=== PATIENT | female | born 1960 | race Two or more races ===

== ENCOUNTER → 2024-09-04 | Outpatient (CLI) | payer BC, SELFPAY ==
[2024-09-04 11:33] LABS: Basophils # (Auto) 0.1 Thou/mm3 (0.0-0.2); Basophils % (Auto) 1 % (0-2.5); Eosinophils % (Auto) 1 % (0-10); Hematocrit 40.5 % (36.0-46.0); Hemoglobin 13.9 g/dL (12.0-16.0); Immature Granulocytes % (Auto) 0 % (0-0); Immature Granulocytes Auto 0.01 Thou/mm3 (0.00-0.00); Lymphocytes # (Auto) 1.7 Thou/mm3 (1.0-4.8); Lymphocytes % (Auto) 31 % (10-50); Mean Corpuscular HGB Conc 34.3 g/dl (31.0-37.0); Mean Corpuscular Hemoglobin 32.6 pg (25.0-35.0); Mean Corpuscular Volume 95 fL (80-100); Monocytes # (Auto) 0.3 Thou/mm3 (0.0-0.8); Monocytes % (Auto) 5 % (0-12); Neutrophils # (Auto) 3.5 Thou/mm3 (1.8-7.7); Neutrophils % (Auto) 63 % (37-80); Nucleated Red Blood Cell % 0 /100 WBC (0); Platelet Count 235 Thou/mm3 (140-440); RDW Standard Deviation 48.1 fL (36.4-46.3); Red Blood Count 4.27 Miln/mm3 (4.00-5.20); White Blood Count 5.7 Thou/mm3 (3.6-11.0)
[2024-09-04 11:42] LABS: Glucose Estimated Average 103 mg/dL (80-131); Hemoglobin A1C 5.2 % Hgb (4.8-6.0)
[2024-09-04 11:46] LABS: T4 (Thyroxine) 6.8 mcg/dL (4.5-10.9)
[2024-09-04 11:48] LABS: Alanine Aminotransferase 15 U/L (10-49); Albumin, Serum 4.4 gm/dL (3.4-4.8); Albumin/Globulin Ratio 2.1 (1.2-2.2); Alkaline Phosphatase 75 U/L (46-116); Anion Gap 2 (7-16); Aspartate Amino Transferase 17 U/L (0-34); BUN/Creatinine Ratio 18 Ratio (12-20); Bilirubin,Total 0.6 mg/dL (0.3-1.2); Blood Urea Nitrogen 14 mg/dL (9-23); Calcium 9.7 mg/dL (8.3-10.6); Calcium (Corrected) 9.7 mg/dL (8.5-10.1); Carbon Dioxide 28.9 mMol/L (20.0-31.0); Cardiac Risk Estimate 2.7 RATIO (3.7-5.6); Chloride 108 mMol/L (98-107); Cholesterol 216 mg/dL (132-200); Creatinine (Component) 0.8 mg/dL (0.6-1.3); Globulin 2.1 gm/dL (2.3-3.5); Glucose 95 mg/dL (74-106); HDL Cholesterol 79 mg/dL (40-60); LDL Cholesterol,Calculated 124 mg/dL (0-130); Osmolality,Calculated 278 (275-295); Potassium 4.2 mMol/L (3.4-5.1); Sodium 139 mMol/L (136-145); Total Protein 6.5 gm/dL (5.7-8.2); Triglycerides 65 mg/dL (30-150); eGFR > 60 See Note
== END | disposition home or self-care (01) ==
LOC: COPL 10:21
PROVIDERS: PCP Family Medicine; Referring Provider Family Medicine; Visit Provider Family Medicine
DX: Z00.00 Encounter for general adult medical examination without abnormal findings (principal); R79.9 Abnormal finding of blood chemistry, unspecified
CPT/HCPCS: 36415; 80053; 80061; 83036; 84436; 84443; 85025

== ENCOUNTER → 2024-10-23 | Outpatient (CLI) | payer BC, SELFPAY ==
[2024-10-23 16:00] LABS: Collection Type, Urine Clean Catch
[2024-10-23 18:33] LABS: Bilirubin,Urine Negative (Negative); Blood,Urine Negative (Negative); Clarity,Urine Clear (Clear/Hazy); Color,Urine Yellow (Lt Yel-Yel); Glucose, Urine Negative (Negative); Ketones,Urine Negative (Negative); Leukocyte Esterase,Urine Positive (Negative); Nitrite,Urine Negative (Negative); Protein,Urine 1+ (Neg - Trace); RBC,Urine 4 /hpf (0-3); Specific Gravity,Urine 1.032 (1.001-1.035); Squamous Epithelial Cell,Urine 1 /hpf (0-5); WBC,Urine 7 /hpf (0-5)
== END | disposition home or self-care (01) ==
LOC: SLDO 15:46
PROVIDERS: PCP Physician Assistant; Referring Provider Physician Assistant; Visit Provider Physician Assistant
DX: N39.0 Urinary tract infection, site not specified (principal)
CPT/HCPCS: 81001; 87077; 87086; 87186

== ENCOUNTER 2024-10-24 14:16 | Inpatient (IN) | payer BC, SELFPAY ==
[2024-10-24] VITALS (7 sets, daily range): BP systolic 112–117; BP diastolic 47–70; PULSE 65–93; RESP 16–24; TEMP 36.5–37.2; O2SAT 95–99; BMI 23.8
--- NOTE | 2024-10-24 14:48 | XR_ITS ---
Examination: CT abdomen and pelvis without contrast. Coronal 3-D reconstructions. Sagittal 2-D reconstructions. Date and time of exam:October 24, 2024 at 1622 hrs. Comparison September 20, 2021 Indications: Lower abdominal pain pelvic pain beginning 3 days ago CTDI: vol (mGy): 6.65 DLP: (mGycm): 348 Technique: Axial images of the abdomen have been obtained, 3 mm slice thickness Intravenous contrast material has not been administered. Low dose protocols were performed. One or more of the following dose reduction techniques were used; automated exposure control, adjustment of the mA and/or KV according to patient size, use of iterative reconstruction technique. Findings: Pneumoperitoneum No focal liver lesions Cholelithiasis, gallbladder wall appears thickened Spleen is not enlarged No pancreatic mass 2 mm lower pole left renal calculus, no hydronephrosis or ureteral calculi Normal appendix No bowel obstruction Colonic diverticulosis, acute diverticulitis sigmoid colon with small air droplets outside the wall of the sigmoid colon, localized perforation, the diverticulitis likely accounting for the pneumoperitoneum No pelvic abscess Urinary bladder intact Retroverted uterus Impression: Acute sigmoid diverticulitis with localized perforation and pneumoperitoneum No peridiverticular abscess 2 mm lower pole left renal calculus Normal appendix
[2024-10-24 15:11] LABS: Collection Type, Urine Clean Catch
[2024-10-24 15:15] LABS: Bacteria,Urine Rare; Bilirubin,Urine Negative (Negative); Blood,Urine Negative (Negative); Clarity,Urine Clear (Clear/Hazy); Color,Urine Yellow (Lt Yel-Yel); Glucose, Urine Negative (Negative); Ketones,Urine 2+ (Negative); Leukocyte Esterase,Urine Negative (Negative); Nitrite,Urine Negative (Negative); Protein,Urine 1+ (Neg - Trace); RBC,Urine 5 /hpf (0-3); Specific Gravity,Urine 1.033 (1.001-1.035); Squamous Epithelial Cell,Urine < 1 /hpf (0-5); WBC,Urine 3 /hpf (0-5)
--- NOTE | 2024-10-24 15:28 | PD.EDRME ---
Rapid Medical Screening Exam RME Arrival date/time: 10/24/24 14:16 64-year-old female with no known medical history presents to the emergency room with a chief complaint of 7 out of 10 lower abdominal pain to the left lower quadrant. Patient states she was sent over by her primary care provider to rule out diverticulitis. I have greeted and performed a focused initial assessment of this patient. A comprehensive ED assessment and evaluation of the patient, analysis of all test results, and completion of the medical decision making process will be conducted by additional ED providers. Chief Complaint: Abdominal Pain Time Seen by Provider: 10/24/24 19:38 Vital signs: Vital Signs Temperature 99.0 F 10/24/24 14:33 Pulse Rate 93 10/24/24 14:33 Respiratory Rate 19 10/24/24 14:33 Blood Pressure 117/70 10/24/24 14:33 Pulse Oximetry (%) 95 10/24/24 14:33 Oxygen Delivery Method Room Air 10/24/24 14:33 Vital signs reviewed by provider: Yes
[2024-10-24] MEDS: KETOROLAC INJ 60 MG/2 ML VIAL 30 MG IM (15:40)
[2024-10-24 17:28] LABS: Basophils % (Auto) 0 % (0-2.5); Eosinophils % (Auto) 0 % (0-10); Hematocrit 35.4 % (36.0-46.0); Hemoglobin 12.1 g/dL (12.0-16.0); Immature Granulocytes % (Auto) 0 % (0-0); Immature Granulocytes Auto 0.06 Thou/mm3 (0.00-0.00); Lymphocytes # (Auto) 1.5 Thou/mm3 (1.0-4.8); Lymphocytes % (Auto) 11 % (10-50); Mean Corpuscular HGB Conc 34.2 g/dl (31.0-37.0); Mean Corpuscular Hemoglobin 31.7 pg (25.0-35.0); Mean Corpuscular Volume 93 fL (80-100); Monocytes # (Auto) 0.8 Thou/mm3 (0.0-0.8); Monocytes % (Auto) 6 % (0-12); Neutrophils # (Auto) 11.4 Thou/mm3 (1.8-7.7); Neutrophils % (Auto) 83 % (37-80); Nucleated Red Blood Cell % 0 /100 WBC (0); Platelet Count 187 Thou/mm3 (140-440); RDW Standard Deviation 45.5 fL (36.4-46.3); Red Blood Count 3.82 Miln/mm3 (4.00-5.20); White Blood Count 13.8 Thou/mm3 (3.6-11.0)
[2024-10-24 18:02] LABS: Alanine Aminotransferase < 7 U/L (10-49); Albumin, Serum 4.4 gm/dL (3.4-4.8); Albumin/Globulin Ratio 1.8 (1.2-2.2); Alkaline Phosphatase 72 U/L (46-116); Anion Gap 9 (7-16); Aspartate Amino Transferase 13 U/L (0-34); BUN/Creatinine Ratio 20 Ratio (12-20); Bilirubin,Total 0.7 mg/dL (0.3-1.2); Blood Urea Nitrogen 16 mg/dL (9-23); Calcium 9.5 mg/dL (8.3-10.6); Calcium (Corrected) 9.5 mg/dL (8.5-10.1); Carbon Dioxide 24.3 mMol/L (20.0-31.0); Chloride 106 mMol/L (98-107); Creatinine (Component) 0.8 mg/dL (0.6-1.3); Estimated Creatinine Clearance 57.1 mL/min (>60); Globulin 2.4 gm/dL (2.3-3.5); Glucose 86 mg/dL (74-106); Lipase 30 U/L (12-53); Osmolality,Calculated 277 (275-295); Potassium 3.9 mMol/L (3.4-5.1); Sodium 139 mMol/L (136-145); Total Protein 6.8 gm/dL (5.7-8.2); eGFR > 60 See Note
--- NOTE | 2024-10-24 19:48 | EDNOTE_ITS ---
ED Abdominal Pain RME/HPI General Chief Complaint: Abdominal Pain Stated complaint: ABDOMINAL PAIN Time seen by provider: 10/24/24 19:38 Arrival date/time: 10/24/24 14:16 Limitations: no limitations RME / HPI RME / HPI narrative: 10/24/24 14:16 64-year-old female with no known medical history presents to the emergency room with a chief complaint of 7 out of 10 lower abdominal pain to the left lower quadrant. Patient states she was sent over by her primary care provider to rule out diverticulitis. I have greeted and performed a focused initial assessment of this patient. A comprehensive ED assessment and evaluation of the patient, analysis of all test results, and completion of the medical decision making process will be conducted by additional ED providers. -------- Dr. Garrido's Main ED Evaluation: 64yo female presents to the ED for a chief complaint of LLQ pain x 3 days. No radiation or migration. She states her pain was constant and was [id number]. She states her pain persisted today, so she came in for evaluation. She reports associated nausea and a fever. She denies any vomiting, diarrhea, UTI symptoms or any other associated symptoms. She denies any previous abdominal surgeries. Denies being on any medications. Related Data Previous Rx's ?Medication ?Instructions ?Recorded ibuprofen 600 mg tablet 600 mg PO Q6H PRN pain #30 tabs 09/20/21 Allergies Allergy/AdvReac Type Severity Reaction Status Date / Time ciprofloxacin [From Cipro] Allergy Mild Rash Verified 10/24/24 14:20 Review of Systems Review of Systems Systems Reviewed: All systems reviewed, normal except as documented Past Medical History Past Medical History CARDIAC: Negative Cardiac Disorders or Congestive Heart Failure RESPIRATORY: Negative Chronic Obstructive Pulmonary Disease (COPD) or Asthma GASTROINTESTINAL: Positive Obesity GENITOURINARY: Negative Renal Disease ENDOCRINE: Negative Diabetes Mellitus Type 1 or Diabetes Mellitus Type 2 HEMATOLOGIC: Negative Sickle Cell Disease Social History SMOKING STATUS: Never smoker SUBSTANCE USE: unknown ED Exam General Limitations: Present no limitations General appearance: Present alert, in no apparent distress and other (talking in full sentences) Head Head exam: Present atraumatic Eye Eye exam: Present normal appearance, PERRL and EOMI ENT ENT exam: Present normal exam, normal oropharynx and mucous membranes moist Neck Neck exam: Present normal inspection, full ROM and trachea midline Chest Chest inspection: Present normal inspection and symmetric chest wall rise Respiratory Respiratory exam: Present normal lung sounds bilaterally; Absent accessory muscle use Cardiovascular Cardiovascular exam: Present regular rate, normal rhythm and normal heart sounds Abdominal Exam Abdominal exam: Present soft and normal bowel sounds Extremities Exam Extremities exam: Present normal inspection and full ROM Back Exam Back exam: Present normal inspection and full ROM Neurological Exam Neurological exam: Present alert, oriented X3 and CN II-XII intact Psychiatric Psychiatric exam: Present normal affect and normal mood Skin Skin exam: Present warm, dry, intact and normal color; Absent diaphoresis Course Quality Measures none Orders Category Date Time Status COVID-19 Screening Questionnaire NOW Care 10/24/24 20:40 Active Decision to Admit X1 Care 10/24/24 20:[address] abdomen pelvis wo con Stat Exams 10/24/24 14:48 Completed Blood Culture (Lab) Stat Lab 10/24/24 19:33 Received CBC Stat Lab 10/24/24 17:07 Completed CMP [Comprehensive Metabolic Panel] Stat Lab 10/24/24 17:07 Completed Lactic Acid [Lactate (Lactic Acid)] Stat Lab 10/24/24 19:33 Completed Lipase Stat Lab 10/24/24 17:07 Completed Procalcitonin Stat Lab 10/24/24 17:07 Completed UA [Urinalysis] Stat Lab 10/24/24 14:45 Completed Urine Culture Stat Lab 10/24/24 14:45 Received Ketorolac Inj [Toradol Inj] Med 10/24/24 14:49 Discontinued 30 mg IM X1 ONE Piper/Tazo Inj [Zosyn Inj] 3.375 gm Med 10/24/24 19:02 Discontinued Sodium Chloride 0.9% (P) [Ns 0.9% (P)] 50 ml IV X1 Vital Signs Vital signs: Vital Signs Temperature 99.0 F 10/24/24 14:33 Pulse Rate 93 10/24/24 14:33 Respiratory Rate 19 10/24/24 14:33 Blood Pressure 117/70 10/24/24 14:33 Pulse Oximetry (%) 95 10/24/24 14:33 Oxygen Delivery Method Room Air 10/24/24 14:33 Abdominal Pain MDM Patient data External records reviewed:: [facility] previous records (Per chart review, patient has no relevant previous ED visits.) Clinical information provided by:: patient Social determinants that could affect healthcare access:: none Patient has the following chronic illnesses:: none How is presenting disease/condition affected by chronic disease/condition?: no chronic disease Evaluation data The following diagnostics were reviewed and interpreted by me:: lab results and radiology exam(s) Lab and/or radiology exams considered but not ordered:: none Interpretation Summary: WBC count is elevated at 13.8, CMP is normal, Lipase is normal, Lactate is normal, Procalcitonin is normal, UA is unremarkable, according to my interpretation. ----- [facility] Report Signed Patient: ALICIA PHILLIP [facility]. Record#: [id number] Birthdate: 1960 Age/Sex: 64 / F Location: [facility] Attending Dr: Ordering Physician: Nicolas Roper Date of Service: 10/24/24 Procedure(s): CT abdomen pelvis wo con Accession Number(s): [id number] cc: Nicolas Roper; Miguel Muhammad MD; Arnold Villela MD~ Examination: CT abdomen and pelvis without contrast. Coronal 3-D reconstructions. Sagittal 2-D reconstructions. Date and time of exam:October 24, 2024 at 1622 hrs. Comparison September 20, 2021 Indications: Lower abdominal pain pelvic pain beginning 3 days ago CTDI: vol (mGy): 6.65 DLP: (mGycm): 348 Technique: Axial images of the abdomen have been obtained, 3 mm slice thickness Intravenous contrast material has not been administered. Low dose protocols were performed. One or more of the following dose reduction techniques were used; automated exposure control, adjustment of the mA and/or KV according to patient size, use of iterative reconstruction technique. Findings: Pneumoperitoneum No focal liver lesions Cholelithiasis, gallbladder wall appears thickened Spleen is not enlarged No pancreatic mass 2 mm lower pole left renal calculus, no hydronephrosis or ureteral calculi Normal appendix No bowel obstruction Colonic diverticulosis, acute diverticulitis sigmoid colon with small air droplets outside the wall of the sigmoid colon, localized perforation, the diverticulitis likely accounting for the pneumoperitoneum No pelvic abscess Urinary bladder intact Retroverted uterus Impression: Acute sigmoid diverticulitis with localized perforation and pneumoperitoneum No peridiverticular abscess 2 mm lower pole left renal calculus Normal appendix Dictated By: Miguel Muhammad MD Signed By: <Electronically signed by Miguel Muhammad MD in OV> 10/24/24 9552 Medications / Prescriptions Medications or Prescriptions considered but not ordered:: none Medication administrations:: Medication Administration History Discontinued Medications Piperacillin Sod/Tazobactam (Sod 3.375 gm/ Sodium Chloride) 50 mls @ 100 mls/hr IV X1 ONE Stop: 10/24/24 19:31 Ketorolac Tromethamine (Ketorolac Inj 60 Mg/2 Ml Vial) 30 mg IM X1 ONE Stop: 10/24/24 14:50 Last Admin: 10/24/24 15:40 Dose: 30 mg Documented By: OA see above Consultations Consultation(s) initiated? (list below): Yes Consultation #1 (Physician, Specialty, Details): Discussed case with [Dr. Murry] from [general surgery] regarding [consultation]. Discussed patients ED course, exam findings, labs, and radiology results. States if the patient has rebound or septic appearing, she will take the patient to the OR, otherwise, the patient can be admitted to the medicine team. Time: 20:48 Consultation #2 (Physician, Specialty, Details): Discussed case with [the resident physician, attending Dr. Clancy] from Hospitalist service regarding admission. Discussed patients ED course, exam findings, labs, and radiology results. The Hospitalist [agrees] to accept the patient for admission. Diagnosis Differential diagnosis abdominal pain: diverticulitis, pancreatitis and other (rupture of peritoneum) Most likely diagnosis given after review of the tests above:: see below Admission Indicated Admission indicated?: indicated Admission Request Was there a request for admission?: Yes Admission Attestation Admission request attestation: Discussed case with [] from Hospitalist service regarding admission. Discussed patients ED course, exam findings, labs, and radiology results. The Hospitalist [agrees,declines] to accept the patient for admission. Disposition Plan Disposition Plan: Admit Discharge Plan Prescriptions/Referrals Prescriptions/Med Rec: No Action ibuprofen 600 mg tablet 600 mg PO Q6H PRN (Reason: pain) Qty: 30 0RF Referrals: Arnold Villela MD [Primary Care Provider] - In 1 week Patient/Caregiver Discharge Instructions Print Language: Tajik
[2024-10-24 19:49] LABS: Lactate (Lactic Acid) 0.6 mMol/L (0.4-2.0)
[2024-10-24 20:18] LABS: Procalcitonin 0.21 ng/ml (0.0-0.49)
[2024-10-24] MEDS: PIPER/TAZO INJ 3.375 GM in SODIUM CHLORIDE 0.9% (P) 50 ML IV (22:19)
--- NOTE | 2024-10-24 22:43 | PD.RESHP ---
Documentation for date of: 10/24/24 HPI History of Present Illness Chief complaint: Abdominal pain for 2 days associated with fever and nausea History of present illness: HPI:A 64-year-old female patient with no known medical condition presented to the ED due to left lower quadrant abdominal pain that started 2 days before admission. Patient reported that the pain started as 9 out of 10 in severity in her lower abdominal area more to the left associated with nausea. Patient went to sleep at the night thinking that the pain skin resolved however the next day she developed fever which made her concerned and she became nauseous however she did not vomit. Patient went to her primary care physician in which she was prescribed antibiotics orally however her pain continued to worsen and started to develop fever for that reason he recommended the patient to go to the ED. Patient denied any vomiting denied any diarrhea or constipation he she reported that she has some episodes of constipation almost once a month however it is relieved by laxatives. Of note patient reported that she has recurrent UTIs and she mentioned that she usually have 3-4 episodes of UTI every year and she mentioned that the urine become smelling and dark brown. Home medications:None ED course: At the ED patient was found to have heart rate of 93, blood pressure of 117/70, temperature of 99.0, O2 of 95 on room air. CBC was positive for WBC of 13.8, hemoglobin of 12.1, platelet 187, biochemistry was nonsignificant lactic acid within normal limits, lipase of 30, Pro-Masood was normal. CT scan of the abdomen and pelvis showed sigmoid diverticulitis with localized pneumoperitoneum, microperforations. General surgeon Dr. Osuna was consulted she recommended to admit the patient for conservative management with IV fluids and IV antibiotics. If the patient became septic or developed signs of peritonitis she she will possibly do surgical intervention. PMH: None PSX: Ankle surgery PFX: None Social hx: Alcohol: Socially Tobacco: Denied Illicit drugs: Mushroom coffee Allergies: Ciprofloxacin Review of Systems Review of Systems Systems Reviewed: All systems reviewed, normal except as documented Exam Vital Signs Temp Pulse Resp BP Pulse Ox O2 Del Method 98.0 F 65 16 112/66 97 Room Air 10/24/24 22:27 10/24/24 21:46 10/24/24 22:20 10/24/24 22:20 10/24/24 22:20 10/24/24 22:20 Narrative Exam GEN: AOx3, able to speak full sentences HEENT: NC/AC, PERRLA, oral mucosa moist, neck supple CVS: RRR, S1-S2 present, no murmurs appreciated RESP: CTAB GI: No obvious scars, no abdominal distention, lower abdominal tenderness mostly on the left lower quadrant, also at the epigastric region. MSK: able to move all 4 limbs, no lower extremity edema SKIN: warm and dry [employer]: CN II-XII and Sensation grossly intact. Results: Labs 10/24/24 17:07 10/24/24 17:07 Labs: Short CBC 10/24/24 Range/Units 17:07 WBC 13.8 H (3.6-11.0) Thou/mm3 Hgb 12.1 (12.0-16.0) g/dL Hct 35.4 L (36.0-46.0) % Plt Count 187 (140-440) Thou/mm3 BMP 10/24/24 17:07 Sodium 139 Potassium 3.9 Chloride 106 Carbon Dioxide 24.3 BUN 16 Creatinine 0.8 Glucose 86 Calcium 9.5 Liver Function 10/24/24 Range/Units 17:07 Total Bilirubin 0.7 (0.3-1.2) mg/dL AST 13 (0-34) U/L ALT < 7 L (10-49) U/L Alkaline Phosphatase 72 (46-116) U/L Albumin 4.4 (3.4-4.8) gm/dL Urine 10/24/24 Range/Units 14:45 Urine Color Yellow (Lt Yel-Yel) Urine Clarity Clear (Clear/Hazy) Urine pH 6.0 (5.0-7.0) Ur Specific [place] 1.033 (1.001-1.035) Urine Protein 1+ A (Neg - Trace) Urine Glucose (UA) Negative (Negative) Quality Measures Quality Measures none Advance care planning discussed with:: patient Medications Home Medications and Allergies Allergies Allergy/AdvReac Type Severity Reaction Status Date / Time ciprofloxacin [From Cipro] Allergy Mild Rash Verified 10/24/24 14:20 Visit Medications Discontinued Medications Piperacillin Sod/Tazobactam (Sod 3.375 gm/ Sodium Chloride) 50 mls @ 100 mls/hr IV X1 ONE Stop: 10/24/24 19:31 Last Admin: 10/24/24 22:19 Dose: 100 mls/hr Ketorolac Tromethamine (Ketorolac Inj 60 Mg/2 Ml Vial) 30 mg IM X1 ONE Stop: 10/24/24 14:50 Last Admin: 10/24/24 15:40 Dose: 30 mg Assessment & Plan Plan Summary:A 64-year-old female patient and known case of any medical condition presented to the ED due to left lower quadrant abdominal pain that started 2 days before admission. Patient reported that the pain started as 9 out of 10 in severity in her lower abdominal area more to the left associated with nausea. CT scan showed diverticulitis. Assessment and plan #Sigmoid diverticulitis #Localized sigmoid perforation CBC was positive for WBC of 13.8, hemoglobin of 12.1, platelet 187, biochemistry was nonsignificant lactic acid within normal limits, lipase of 30, Pro-Masood was normal. CT scan of the abdomen and pelvis showed sigmoid diverticulitis with localized pneumoperitoneum, microperforations. General surgeon Dr. Osuna was consulted she recommended to admit the patient for conservative management with IV fluids and IV antibiotics. Plan ? Admit patient to MedSurg ? Keep the patient n.p.o. ? IV fluid 100 mL/h ? General Surgery consultation Dr. Osuna was ordered, recommendation appreciated ? Patient hemodynamically stable at this time but appears that perforation is contained, no peritoneal signs noted. No immediate indication for surgery at this time ? Start the patient on Zosyn 0 /3 ? Pain management as per protocol ? Coagulation panel for possible surgical intervention ? Blood culture was ordered by the ED physician, follow-up on the results ? Tylenol as needed for fever Hospital Maintenance: FEN: N.p.o. DVT ppx: SCD GI ppx: Protonix IV lines: PIV Vanessa: None Code status: Full code Dispo: MedSurg - Patient's plan and care discussed with my attending, Dr. Aston Mckeon MD Internal Medicine PGY-2 Attending Provider Attestation/Addendum I have examined the patient, reviewed labs and imaging findings, discussed the case with the resident(s), and reviewed entered orders. I agree with the plan of care as outlined in this note, with these additional summaries/recommendations: 64-year-old female with no known past medical history presents the ED with chief complaint of left lower quadrant pain that began approximately 2 days prior to admission with fevers, chills, severe manage 10 pain which prompted her to come to the ER. Labs showed white blood cell count of 13.[address] scan on admission revealed sigmoid diverticulitis with perforation and localized pneumoperitoneum (no abscess). Patient will be admitted for acute complicated sigmoid diverticulitis and to be initiated on Zosyn. Placed n.p.o. and general surgery consult placed, however no immediate indications for surgical intervention at this time. Patient stable with no peritoneal signs at this time. Angel Clancy MD
[2024-10-24] MEDS: MORPHINE SULF INJ 10 MG/ML VIAL 2 MG IVP (23:54)
[2024-10-24] MEDS: RINGERS LACTATED 1000 ML 1,000 ML 100 ML IV (23:55)
[2024-10-24] MEDS: ONDANSETRON INJ 2 MG/ML INJ 2 ML 4 MG IV (23:55)
[2024-10-25] VITALS (14 sets, daily range): BP systolic 83–119; BP diastolic 43–60; PULSE 53–72; RESP 13–97; TEMP 36.1–36.3; O2SAT 93–97; BMI 23.6
--- NOTE | 2024-10-25 03:32 | PC.NURSE ---
report given to Remberto SKINNER. Pt taken to rm via wc by ngozi.
[2024-10-25] MEDS: PIPER/TAZO 3.375 GM 3.375 GM/50 ML BAG IV ×3 (05:26→21:15)
[2024-10-25 05:36] LABS: Basophils % (Auto) 0 % (0-2.5); Eosinophils # (Auto) 0.1 Thou/mm3 (0.0-0.5); Eosinophils % (Auto) 2 % (0-10); Hematocrit 29.9 % (36.0-46.0); Hemoglobin 9.9 g/dL (12.0-16.0); Immature Granulocytes % (Auto) 0 % (0-0); Immature Granulocytes Auto 0.02 Thou/mm3 (0.00-0.00); Lymphocytes # (Auto) 1.4 Thou/mm3 (1.0-4.8); Lymphocytes % (Auto) 18 % (10-50); Mean Corpuscular HGB Conc 33.1 g/dl (31.0-37.0); Mean Corpuscular Hemoglobin 31.3 pg (25.0-35.0); Mean Corpuscular Volume 95 fL (80-100); Monocytes # (Auto) 0.7 Thou/mm3 (0.0-0.8); Monocytes % (Auto) 8 % (0-12); Neutrophils # (Auto) 5.5 Thou/mm3 (1.8-7.7); Neutrophils % (Auto) 72 % (37-80); Nucleated Red Blood Cell % 0 /100 WBC (0); Platelet Count 170 Thou/mm3 (140-440); RDW Standard Deviation 46.4 fL (36.4-46.3); Red Blood Count 3.16 Miln/mm3 (4.00-5.20); White Blood Count 7.7 Thou/mm3 (3.6-11.0)
[2024-10-25 06:32] LABS: Alanine Aminotransferase 8 U/L (10-49); Albumin, Serum 3.7 gm/dL (3.4-4.8); Albumin/Globulin Ratio 1.9 (1.2-2.2); Alkaline Phosphatase 57 U/L (46-116); Anion Gap 10 (7-16); Aspartate Amino Transferase 13 U/L (0-34); BUN/Creatinine Ratio 20 Ratio (12-20); Bilirubin,Total 0.7 mg/dL (0.3-1.2); Blood Urea Nitrogen 16 mg/dL (9-23); Calcium 8.8 mg/dL (8.3-10.6); Carbon Dioxide 23.4 mMol/L (20.0-31.0); Chloride 106 mMol/L (98-107); Creatinine (Component) 0.8 mg/dL (0.6-1.3); Estimated Creatinine Clearance 55.4 mL/min (>60); Glucose 73 mg/dL (74-106); Osmolality,Calculated 277 (275-295); Phosphorous 3.2 mg/dL (2.4-5.1); Potassium 3.8 mMol/L (3.4-5.1); Sodium 139 mMol/L (136-145); Thyroid Stimulating Hormone 2.32 uIU/mL (0.55-4.78); Total Protein 5.7 gm/dL (5.7-8.2); eGFR > 60 See Note
[2024-10-25] MEDS: PANTOPRAZOLE 40 MG TABLET PO ×2 (08:03→21:15)
--- NOTE | 2024-10-25 08:54 | ESPR_ITS ---
<Statement entered by Adair Archer MD - 10/25/24 16:51> Patient was seen and examined at the bedside. Patient reported that she had abdominal discomfort for the past few days. She denied any hematochezia. Patient reported to have feeling of nausea and vomiting. Patient is admitted for sigmoid diverticulitis with pneumoperitoneum. Surgery was consulted and per recommendations we are managing medically and no surgical intervention at this point. Currently we are continue with Zosyn and will follow-up on blood cultures and urine cultures. Will follow-up on ultrasound liver mass CT abdomen showed cholelithiasis pattern. Labs showed stable white count and hemoglobin. Kidney functions were stable. Will likely continue with current management and follow-up on morning labs. All labs and orders were reviewed. I saw and examined the patient, and I agree with current management stated by Dr Kelvin MD ,PGY1. Plan of care was discussed with the attending physician and resident physician. Disclaimer: Despite multiple revisions, due to the dictation software being used, the document bellow may not be free of grammatical errors including phonetic/typographic errors. However, this does not deter from our commitment to providing health care in the patient's best interest in mind. Dr. Gianni MD, PGY 2 Documentation for date of: 10/25/24 Subjective Subjective Interval history: Patient is a 64-year-old female with a past medical history of cold sores but other than that unremarkable who was admitted on 10/24/2024 for acute diverticulitis with a small perforation/pneumoperitoneum. No overnight events reported. Patient examined at bedside. Patient reports that her abdominal pain has improved some and is down to 6/10 and was initially a 8/10 on pain scale. She does report that she had one episode of diarrhea on new years but none since then. She denied hematochezia, vomiting, chest pain, dyspnea, and dizziness. Exam Vital Signs Temp Pulse Resp BP Pulse Ox O2 Del Method 97 F 67 19 119/60 94 L Room Air 10/25/24 04:00 10/25/24 07:05 10/25/24 07:05 10/25/24 04:00 10/25/24 04:00 10/25/24 04:00 Narrative Exam Constitutional: Awake and alert. Resting comfortably in bed. CHEST: Symmetrical, atraumatic, and with equal expansion , Nontender on palpation no deformity and no crepitus. CARDIOVASCULAR: Heart regular rhythm no murmur or gallop rub or extra beats. LUNGS: Clear to auscultation bilaterally with symmetrical chest rise.? No laboring tachypnea or wheezing.? No intercostal subcostal retraction.? No rales and no rhonchi. ABDOMEN: Patient has tenderness to palpation throughout abdomen. Pain seems more severe in left lower quadrant but also right upper quadrant EXTREMITIES: Nontender.? No edema.? No cyanosis.? Patient is able to move all 4 extremities well, with full ROM and good CSM. SKIN: Warm and dry, no jaundice or rashes noted. Objective Labs 10/26/24 05:56 10/26/24 05:56 Labs: Laboratory Results - last 24 hr 10/24/24 10/24/24 10/24/24 14:45 17:07 19:33 WBC 13.8 H RBC 3.82 L Hgb 12.1 Hct 35.4 L MCV 93 MCH 31.7 MCHC 34.2 RDW Std Deviation 45.5 Plt Count 187 Neut % (Auto) 83 H Lymph % (Auto) 11 Flagler % (Auto) 6 Eos % (Auto) 0 Baso % (Auto) 0 Neut # (Auto) 11.4 H Lymph # (Auto) 1.5 Flagler # (Auto) 0.8 Eos # (Auto) 0.0 Baso # (Auto) 0.0 Immature Gran # (Auto) 0.06 H Absolute Nucleated RBC 0.00 Immature Gran % 0 Nucleated RBC % 0 Sodium 139 Potassium 3.9 Chloride 106 Carbon Dioxide 24.3 Anion Gap 9 BUN 16 Creatinine 0.8 Estim Creat Clear Calc 57.1 L eGFR > 60 BUN/Creatinine Ratio 20 Glucose 86 Calculated Osmolality 277 Lactic Acid 0.6 Calcium 9.5 Corrected Calcium 9.5 Phosphorus Magnesium Total Bilirubin 0.7 AST 13 ALT < 7 L Alkaline Phosphatase 72 Total Protein 6.8 Albumin 4.4 Globulin 2.4 Albumin/Globulin Ratio 1.8 Lipase 30 Procalcitonin 0.21 TSH Ur Collection Type Clean Catch Urine Color Yellow Urine Clarity Clear Urine pH 6.0 Ur Specific Ollie 1.033 Urine Protein 1+ A Urine Glucose (UA) Negative Urine Ketones 2+ A Urine Blood Negative Urine Nitrite Negative Urine Bilirubin Negative Urine Urobilinogen (Auto) 4.0 Ur Leukocyte Esterase Negative Urine RBC 5 H Urine WBC 3 Ur Squamous Epith Cells < 1 Urine Bacteria Rare 10/25/24 05:16 WBC 7.7 D RBC 3.16 L Hgb 9.9 L D Hct 29.9 L MCV 95 MCH 31.3 MCHC 33.1 RDW Std Deviation 46.4 H Plt Count 170 Neut % (Auto) 72 Lymph % (Auto) 18 Flagler % (Auto) 8 Eos % (Auto) 2 Baso % (Auto) 0 Neut # (Auto) 5.5 Lymph # (Auto) 1.4 Flagler # (Auto) 0.7 Eos # (Auto) 0.1 Baso # (Auto) 0.0 Immature Gran # (Auto) 0.02 H Absolute Nucleated RBC 0.00 Immature Gran % 0 Nucleated RBC % 0 Sodium 139 Potassium 3.8 Chloride 106 Carbon Dioxide 23.4 Anion Gap 10 BUN 16 Creatinine 0.8 Estim Creat Clear Calc 55.4 L eGFR > 60 BUN/Creatinine Ratio 20 Glucose 73 L Calculated Osmolality 277 Lactic Acid Calcium 8.8 Corrected Calcium 9.0 Phosphorus 3.2 Magnesium 2.0 Total Bilirubin 0.7 AST 13 ALT 8 L Alkaline Phosphatase 57 D Total Protein 5.7 Albumin 3.7 D Globulin 2.0 L Albumin/Globulin Ratio 1.9 Lipase Procalcitonin TSH 2.32 Ur Collection Type Urine Color Urine Clarity Urine pH Ur Specific Ollie Urine Protein Urine Glucose (UA) Urine Ketones Urine Blood Urine Nitrite Urine Bilirubin Urine Urobilinogen (Auto) Ur Leukocyte Esterase Urine RBC Urine WBC Ur Squamous Epith Cells Urine Bacteria Quality Measures Quality Measures VTE prophylaxis Advance care planning discussed with:: patient Assessment & Plan Assessment Current Active Medications: Generic Name Dose Route Start Last Admin Trade Name Hilda PRN Reason Stop Dose Admin Acetaminophen 650 mg 10/24/24 22:50 Acetaminophen 325 Mg Tablet PO 11/23/24 22:49 Q6H PRN Fever >101.5 Acetaminophen 650 mg 10/24/24 22:50 Acetaminophen 325 Mg Tablet PO 11/23/24 22:49 Q6H PRN PAIN SCALE 1-3 (mild Lactated Ringer's 1,000 mls @ 100 mls/hr 10/24/24 23:00 10/24/24 23:55 Lactated Ringers IV 10/25/24 08:59 100 mls/hr .Q10H CARMELO Administration Piperacillin/Tazobactam/Dextrose 3.375 gm in 50 mls @ 12.5 mls/hr 10/25/24 06:00 10/25/24 05:26 Zosyn IV 11/01/24 05:59 12.5 mls/hr Q8HR CARMELO Administration Morphine Sulfate 2 mg 10/24/24 22:50 10/24/24 23:54 Morphine Sulf Inj 10 Mg/Ml Vial IVP 10/29/24 22:49 2 mg Q3H PRN Administration PAIN SCALE 7-10 (Severe Ondansetron HCl 4 mg 10/24/24 22:50 10/24/24 23:55 Ondansetron Inj 2 Mg/Ml Inj 2 Ml IV 11/23/24 22:49 4 mg Q6H PRN Administration NAUSEA OR VOMITING Protocol Oxycodone/Acetaminophen 1 tab 10/24/24 22:50 Oxycodone/Apap 5/325 Tablet PO 10/29/24 22:49 Q6H PRN PAIN SCALE 4-6 (Moderate Pantoprazole Sodium 40 mg 10/25/24 09:00 Pantoprazole 40 Mg Tablet PO 11/24/24 08:59 BID CARMELO Plan 64 year old female with no known past medical history who presented with worsening abdominal pain since 10/22/2024 with associated nausea found to have sigmoid diverticulitis so was admitted for further management. #Sigmoid diverticulitis #Localized sigmoid perforation #Right upper quadrant tenderness CBC was positive for WBC of 13.8, hemoglobin of 12.1, platelet 187, biochemistry was nonsignificant lactic acid within normal limits, lipase of 30, Pro-Masood was normal. General surgeon Dr. Osuna was consulted she recommended to admit the patient for conservative management with IV fluids and IV antibiotics. On exam patient has right upper quadrant tenderness. Possible that this is related to her diverticulitis. However, can not rule out gall bladder disease Diagnostics: -CT scan of the abdomen and pelvis showed sigmoid diverticulitis with localized pneumoperitoneum, microperforations. -Blood Culture 10/23 [facility]-pending second bottle (24 hours) Plan ? Admit patient to [facility] ?clear liquid diet ? IV fluid 100 mL/h -Bolus 500 ml given on 10/25/2024 ?Continue on Zosyn (10/24--) -Vancomycin 10/25/2023 ? Pain management as per protocol ? Tylenol as needed for fever - Per surgery recommendations, since patient hemodynamically stable at this time and no peritoneal signs noted there is no immediate indication for surgery at this time. -General Surgery Consulted appreciate recommendations. #Hypotension #Acute Blood Loss Patient has soft blood pressure thought out hospital course with slight decrease in Hgb from AM, thus acute blood loss can not be ruled out. Drop in hgb likely lab error given improved Hgb shortly after with repeat test. Continue to monitor. Plan -Type and Screen obtained -Consider Hgb and Hct at midnight -bolus 500 ml given today -Monitor MAP>65 -Consider additional bolus and if blood pressure continues to be soft add Midodrine. #Hypoglycemia: Patients labs revealed that glucose was low at 73. Likely from fact patient was NPO. Patient now started on clear liquid diet Plan: - Start D50 25 ml q15 as needed if blood sugar 50-70 - Advance to clear liquid diet - Will reassess glucose # Normocytic anemia: # Iron deficiency anemia On patients labs, Iron of 29, TIBC 200, RDW of 46.4, and hemoglobin of 11.2. Given both Iron and TIBC is low in setting of increased RDW, suspect Iron deficiency anemia. Patients hemoglobin increased from 9.9 to 11.2 so possible that anemia is from delusional effect. Plan: - Low iron stores -monitor BP and hear rate -no iron tablets at this time -Type and Screen in. - Ordered Guaiac testing to rule out GI bleed #Cholelithiasis Incidental finding of cholelithiasis with right upper quadrant pain as noted on CT abdomen. Plan - Complete gall bladder ultrasound given RUQ tenderness Health maintenance Diet: Clear liquid diet until tomorrow GI prophylaxis: Protonix 40 mg p.o. daily DVT prophylaxis:SCDs CODE STATUS: Full code Disposition: Patient is admitted for further workup and management of sigmoid divirticulitis -- Patient was seen and discussed with attending physician, Dr. Hanson and resident physician, Dr. Warren, PGY1 and Dr. Archer, PGY 2 [facility] Medical student - The patient's plan was discussed with attending Dr. Hanson and Dr. Gianni Warren MD PGY1 Internal Medicine Attending Provider Attestation/Addendum I attest that I was physically present for the evaluation, physical examination, lab and imaging review of the patient with the residents. I discussed the case with the residents and agree with the findings and plans of care as documented above. Patient was admitted overnight for management of Acute diverticulitis with small localized perforation and pneumoperitoneum. At bedside today, patient states she is feeling better. Denies any nausea/vomiting, abdominal pain has decreased significantly. Had mild tenderness on palpation. Has been able to tolerate clear liquids. General surgery on board, given patient's improvement, recommended medical management with outpatient elective surgery later on, appreciate recs. We will continue IV antibiotics, analgesics, mild IV hydration. We will slowly advance diet as tolerated. Caitlyn Hanson MD
[2024-10-25 09:12] LABS: Hematocrit 33.8 % (36.0-46.0); Hemoglobin 11.2 g/dL (12.0-16.0)
--- NOTE | 2024-10-25 09:34 | PC.NURSE ---
RN spoke with Dr. Murry. Family and patient are asking about surgical plan. Dr. Murry stated that there is no plan for surgery at this time, but she will come bedside to speak to the family today. The patient is stable, vital signs are stable this time, afebrile. Family has questions about the plan moving forward. RN instructed family to ask Dr. Murry when she comes to speak to them. Dr. Murry stated ok for pt to be started on clear liquid diet. RN will continue to monitor
[2024-10-25 10:20] LABS: Iron 29 mcg/dL (50-170); Percent Iron Saturation 14 % (20-55); Total Iron Binding Capacity 200 mcg/dL (250-425); Unsaturated Iron Binding 171 (225-295)
--- NOTE | 2024-10-25 12:40 | PD.SURCONS ---
HPI Consult details History of present illness: 64F presenting with abdominal pain, nausea and fever. Pt reports symptoms began three days ago with pain in the LLQ, associated with nausea but no vomiting with intermittent fever. Pt was prescribed PO abx by her PCP but given worsening symptoms sought care in ER. CT showed sigmoid diverticulitis with associated pneumoperitoneum; pt has remained hemodynamically normal with no fever, improved pain and normalized WBC Pt states she had a colonoscopy many years ago which was normal, and denies any dysuria, pneumaturia or fecaluria PMH: Denies PSHx: Ankle surgery Meds: None Allergies: Cipro Social hx: Nonsmoker Family hx: No known malignancies Review of Systems Review of Systems ROS Unobtainable: All systems reviewed & no additional complaints except as documented Meds Home Medications and Allergies Allergies Allergy/AdvReac Type Severity Reaction Status Date / Time ciprofloxacin [From Cipro] Allergy Mild Rash Verified 10/24/24 14:20 Exam Vital Signs Temp Pulse Resp BP Pulse Ox O2 Del Method 97.0 F 66 18 104/51 L 94 L Room Air 10/25/24 08:00 10/25/24 08:00 10/25/24 08:00 10/25/24 08:00 10/25/24 08:00 10/25/24 08:00 Constitutional Constitutional: no acute distress Routine Respiratory Exam Respiratory: Present no resp distress Routine Abdominal Exam Abdominal: Present soft; Absent tenderness or distended Results Results: Laboratory Laboratory results: results reviewed Results: Imaging CT scan - abdomen: report reviewed and image reviewed Assessment & Plan Plan 64F otherwise healthy presenting with acute sigmoid diverticulitis with radiographic findings of pneumoperitoneum, who is clinically very well with little to no pain, no tenderness, normalized WBC and remaining afebrile. I explained to pt in person and with her family on the phone that given her overall clinical picture I do not recommend emergent surgery, as she is not having signs of sepsis or peritonitis. I recommend continuing IV antibiotics and gradually advancing diet as tolerated; when her pain is well controlled with PO meds, she is tolerating regular diet with regular bowel function and if WBC remains normal she can be discharged to complete a PO antibiotic regimen. After 12 weeks she should undergo diagnostic colonoscopy and can consider elective sigmoidectomy after that. All questions were answered and pt and family expressed understanding CLD, advance as tolerated (pt prefers to stay on CLD for now) Continue zosyn Trend WBC, vitals
[2024-10-25] MEDS: SODIUM CHLORIDE 0.9% 1000 ML 1,000 ML 70 ML IV (13:22)
--- NOTE | 2024-10-25 13:55 | XR_ITS ---
Examination: Abdomen sonogram, Limited Date and time of exam: October 25, 2023 at 1602 hrs. Indications: Upper abdominal pain today Technique: Real-time dunbar scale transabdominal sonographic images of the upper abdomen obtained. Findings: 23 mm stone in the gallbladder neck with 22 mm second gallstone Gallbladder wall is thickened 0.7 cm with edema Common bile duct point 4 cm Pancreatic head 2.1 cm Liver 15.9 cm smooth contour no focal liver lesions Normal hepatopedal portal venous flow Patent IVC Impression: Acute calculus cholecystitis
[2024-10-25] MEDS: SODIUM CHLORIDE 0.9% 500 ML 500 ML 999 ML IV (15:45)
[2024-10-25] MEDS: SODIUM CHLORIDE 0.9% 1000 ML 1,000 ML 80 ML IV (15:45)
--- NOTE | 2024-10-25 17:32 | PC.NURSE ---
MD made aware that blood culture came back gram positive cocci. No orders given. MD to place orders if needed
[2024-10-25] MEDS: VANCOMYCIN/WATER 1250 MG IVPB 250 ML 120 MG IV (18:25)
[2024-10-26] VITALS (7 sets, daily range): BP systolic 98–110; BP diastolic 53–63; PULSE 54–96; RESP 16–98; TEMP 36.2–36.8; O2SAT 91–98
[2024-10-26 00:20] LABS: INR 1.1 (0.9-1.3); Partial Thromboplastin Time 32.2 Seconds (22.0-36.0); Prothrombin Time 11.5 Seconds (9.0-12.2)
[2024-10-26] MEDS: PIPER/TAZO 3.375 GM 3.375 GM/50 ML BAG IV ×3 (05:14→21:01)
[2024-10-26] MEDS: SODIUM CHLORIDE 0.9% 1000 ML 1,000 ML 80 ML IV (05:17)
[2024-10-26 06:20] LABS: Basophils % (Auto) 1 % (0-2.5); Eosinophils # (Auto) 0.2 Thou/mm3 (0.0-0.5); Eosinophils % (Auto) 3 % (0-10); Hematocrit 32.4 % (36.0-46.0); Hemoglobin 10.6 g/dL (12.0-16.0); Immature Granulocytes % (Auto) 0 % (0-0); Immature Granulocytes Auto 0.02 Thou/mm3 (0.00-0.00); Lymphocytes # (Auto) 1.5 Thou/mm3 (1.0-4.8); Lymphocytes % (Auto) 26 % (10-50); Mean Corpuscular HGB Conc 32.7 g/dl (31.0-37.0); Mean Corpuscular Hemoglobin 31.4 pg (25.0-35.0); Mean Corpuscular Volume 96 fL (80-100); Monocytes # (Auto) 0.5 Thou/mm3 (0.0-0.8); Monocytes % (Auto) 8 % (0-12); Neutrophils # (Auto) 3.6 Thou/mm3 (1.8-7.7); Neutrophils % (Auto) 62 % (37-80); Nucleated Red Blood Cell % 0 /100 WBC (0); Platelet Count 206 Thou/mm3 (140-440); RDW Standard Deviation 46.6 fL (36.4-46.3); Red Blood Count 3.38 Miln/mm3 (4.00-5.20); White Blood Count 5.8 Thou/mm3 (3.6-11.0)
[2024-10-26 07:00] LABS: Alanine Aminotransferase 9 U/L (10-49); Albumin, Serum 3.7 gm/dL (3.4-4.8); Albumin/Globulin Ratio 1.8 (1.2-2.2); Alkaline Phosphatase 56 U/L (46-116); Anion Gap 9 (7-16); Aspartate Amino Transferase 13 U/L (0-34); BUN/Creatinine Ratio 11 Ratio (12-20); Bilirubin,Total 0.6 mg/dL (0.3-1.2); Blood Urea Nitrogen 9 mg/dL (9-23); Calcium 8.7 mg/dL (8.3-10.6); Calcium (Corrected) 8.9 mg/dL (8.5-10.1); Carbon Dioxide 26.3 mMol/L (20.0-31.0); Chloride 108 mMol/L (98-107); Creatinine (Component) 0.8 mg/dL (0.6-1.3); Estimated Creatinine Clearance 55.4 mL/min (>60); Globulin 2.1 gm/dL (2.3-3.5); Glucose 87 mg/dL (74-106); Osmolality,Calculated 282 (275-295); Phosphorous 2.8 mg/dL (2.4-5.1); Potassium 3.9 mMol/L (3.4-5.1); Sodium 143 mMol/L (136-145); Total Protein 5.8 gm/dL (5.7-8.2); eGFR > 60 See Note
[2024-10-26] MEDS: POTASSIUM CHLORIDE 10% 20 MEQ/15 ML UDC PO (09:02)
[2024-10-26] MEDS: VANCOMYCIN/WATER 1250 MG IVPB 250 ML 120 MG IV (09:03)
[2024-10-26] MEDS: PANTOPRAZOLE 40 MG TABLET PO ×2 (09:03→21:01)
--- NOTE | 2024-10-26 13:45 | PD.RESPRO ---
Documentation for date of: 10/26/24 Subjective Subjective Interval history: Patient is a 64-year-old female with a past medical history of cold sores but other than that unremarkable who was admitted on 10/24/2024 for acute diverticulitis with a small perforation/pneumoperitoneum. No overnight events reported. Patient continues to have nause with food and diffuse abdominal pain still present, patient refuses pain medication as she does not want to take opioids. Likely D/C patient after blood cultures return for 48 hours. Exam Vital Signs Temp Pulse Resp BP Pulse Ox O2 Del Method 98.3 F 59 L 18 98/53 L 95 Room Air 10/26/24 12:00 10/26/24 12:00 10/26/24 12:00 10/26/24 12:00 10/26/24 12:00 10/26/24 12:00 Narrative Exam General Appearance: Alert & Oriented X3, well-nourished female who is lying in bed in mild discomfort HEENT: Skull symmetrical and atraumatic. Conjunctivae pink and moist. Pupils equal, round, reactive to light and accommodation (PERRL). External ear without lesion or discharge. Straight, nares patient, mucosa pink, no discharge. Cardio: Normal Rate and Rhythm with S1 and S2 heart sounds. No murmurs or extra heart sounds auscultated. No bruits on carotid auscultation. No peripheral edema or cyanosis. Lungs: Symmetric with good expansion. Chest and back non-tender. Breath sounds vesicular without crackles, wheezing or rhonchi Abdomen: Diffuse tenderness, Non-distended, Normal Reactive Bowel Sounds Neuro: Alert, cooperative, oriented to person, place, and time. Speech clear. CN grossly intact. Upper motor strength 5/5 and Lower motor strength 5/5. Sensation intact. Objective Labs 10/26/24 05:56 10/26/24 05:56 Labs: Laboratory Results - last 24 hr 10/25/24 10/26/24 22:40 05:56 WBC 5.8 RBC 3.38 L Hgb 10.6 L Hct 32.4 L MCV 96 MCH 31.4 MCHC 32.7 RDW Std Deviation 46.6 H Plt Count 206 D Neut % (Auto) 62 Lymph % (Auto) 26 [place] % (Auto) 8 Eos % (Auto) 3 Baso % (Auto) 1 Neut # (Auto) 3.6 Lymph # (Auto) 1.5 [place] # (Auto) 0.5 Eos # (Auto) 0.2 Baso # (Auto) 0.0 Immature Gran # (Auto) 0.02 H Absolute Nucleated RBC 0.00 Immature Gran % 0 Nucleated RBC % 0 PT 11.5 INR 1.1 APTT 32.2 Sodium 143 Potassium 3.9 Chloride 108 H Carbon Dioxide 26.3 Anion Gap 9 BUN 9 Creatinine 0.8 Estim Creat Clear Calc 55.4 L eGFR > 60 BUN/Creatinine Ratio 11 L Glucose 87 Calculated Osmolality 282 Calcium 8.7 Corrected Calcium 8.9 Phosphorus 2.8 Magnesium 2.0 Total Bilirubin 0.6 AST 13 ALT 9 L Alkaline Phosphatase 56 Total Protein 5.8 Albumin 3.7 Globulin 2.1 L Albumin/Globulin Ratio 1.8 Quality Measures Quality Measures VTE prophylaxis Advance care planning discussed with:: patient and spouse Assessment & Plan Assessment Current Active Medications: Generic Name Dose Route Start Last Admin Trade Name Freq PRN Reason Stop Dose Admin Acetaminophen 650 mg 10/24/24 22:50 Acetaminophen 325 Mg Tablet PO 11/23/24 22:49 Q6H PRN Fever >101.5 Acetaminophen 650 mg 10/24/24 22:50 Acetaminophen 325 Mg Tablet PO 11/23/24 22:49 Q6H PRN PAIN SCALE 1-3 (mild Dextrose 25 ml 10/25/24 09:08 Dextrose 50%-Water Inj 50 Ml Syringe IV 11/24/24 09:07 Q15MIN PRN BG 50-70 responsive npo pt Dextrose 50 ml 10/25/24 09:08 Dextrose 50%-Water Inj 50 Ml Syringe IV 11/24/24 09:07 Q15MIN PRN BG <50 OR BG <70 & pt unresponsive Glucagon 1 mg 10/25/24 09:08 Glucagon Inj 1 Mg Vial IM Q15MIN PRN BG <70, and no IV access Piperacillin/Tazobactam/Dextrose 3.375 gm in 50 mls @ 12.5 mls/hr 10/25/24 06:00 10/26/24 13:06 Zosyn IV 11/01/24 05:59 12.5 mls/hr Q8HR CARMELO Administration Sodium Chloride 1,000 mls @ 80 mls/hr 10/25/24 13:59 10/26/24 05:17 Ns IV 11/24/24 13:58 80 mls/hr .[id number] CARMELO Administration Vancomycin HCl 250 mls @ 120 mls/hr 10/25/24 17:45 10/26/24 09:03 Vancomycin/Water 1250 Mg Ivpb IV 11/01/24 17:44 120 mls/hr DAILY@1000 CARMELO Administration Ketorolac Tromethamine 15 mg 10/25/24 12:40 Ketorolac Inj 30 Mg/Ml Vial IVP 10/30/24 12:39 Q6H PRN PAIN SCALE 4-6 (Moderate Morphine Sulfate 2 mg 10/24/24 22:50 10/24/24 23:54 Morphine Sulf Inj 10 Mg/Ml Vial IVP 10/29/24 22:49 2 mg Q3H PRN Administration PAIN SCALE 7-10 (Severe Ondansetron HCl 4 mg 10/24/24 22:50 10/24/24 23:55 Ondansetron Inj 2 Mg/Ml Inj 2 Ml IV 11/23/24 22:49 4 mg Q6H PRN Administration NAUSEA OR VOMITING Protocol Oxycodone/Acetaminophen 1 tab 10/24/24 22:50 Oxycodone/Apap 5/325 Tablet PO 10/29/24 22:49 Q6H PRN PAIN SCALE 4-6 (Moderate Protocol Pantoprazole Sodium 40 mg 10/25/24 09:00 10/26/24 09:03 Pantoprazole 40 Mg Tablet PO 11/24/24 08:59 40 mg BID CARMELO Administration Pharmacy Consult 1 each 10/25/24 17:45 Vancomycin Pharmacy To Dose 1 Each Each IV 11/24/24 17:44 QDAY PRN CONSULT Plan 64 year old female with no known past medical history who presented with worsening abdominal pain since 10/22/2024 with associated nausea found to have sigmoid diverticulitis so was admitted for further management. #Sigmoid diverticulitis #Localized sigmoid perforation #Right upper quadrant tenderness CBC was positive for WBC of 13.8, hemoglobin of 12.1, platelet 187, biochemistry was nonsignificant lactic acid within normal limits, lipase of 30, Pro-Masood was normal. General surgeon Dr. Osuna was consulted she recommended to admit the patient for conservative management with IV fluids and IV antibiotics. On exam patient has right upper quadrant tenderness. Possible that this is related to her diverticulitis. However, can not rule out gall bladder disease 10/26/2023-patient continues to have diffuse tenderness but refusing pain management, blood cultures at 48 hours pending-->Likely D/C on 10/27/2024. 1/2 blood cultures [facility]PC, continue vancomycin, re-access tomorrow after 48 hours. 1/2 bottles likely contaminated. Diagnostics: -CT scan of the abdomen and pelvis showed sigmoid diverticulitis with localized pneumoperitoneum, microperforations. -Blood Culture 1/2 [facility] bottles at 24 hours Plan ? Admit patient to MedSurg ?clear liquid diet-->advance ? IV fluid 100 mL/h d/c 10/26/2023 ?Continue on Zosyn (10/24--) -Vancomycin 10/25/2023 ?Pain management as per protocol ?Tylenol as needed for fever -Per surgery recommendations, since patient hemodynamically stable at this time and no peritoneal signs noted there is no immediate indication for surgery at this time. -General Surgery Consulted appreciate recommendations. #Hypotension #Acute Blood Loss Patient has soft blood pressure thought out hospital course with slight decrease in Hgb from AM, thus acute blood loss can not be ruled out. Drop in hgb likely lab error given improved Hgb shortly after with repeat test. Continue to monitor. Plan -Type and Screen obtained -Consider Hgb and Hct at midnight -bolus 500 ml given 10/25/2024 -Monitor MAP>65 -Consider additional bolus and if blood pressure continues to be soft add Midodrine. #Hypoglycemia: Patients labs revealed that glucose was low at 73. Likely from fact patient was NPO. Patient now started on clear liquid diet Plan: - Start D50 25 ml q15 as needed if blood sugar 50-70 - Advance to clear liquid diet - Will reassess glucose # Normocytic anemia: # Iron deficiency anemia On patients labs, Iron of 29, TIBC 200, RDW of 46.4, and hemoglobin of 11.2. Given both Iron and TIBC is low in setting of increased RDW, suspect Iron deficiency anemia. Patients hemoglobin increased from 9.9 to 11.2 so possible that anemia is from delusional effect. Plan: - Low iron stores -monitor BP and hear rate -no iron tablets at this time given diverticulitis, outpatient -Type and Screen in. - Ordered Guaiac testing to rule out GI bleed #Cholelithiasis Incidental finding of cholelithiasis with right upper quadrant pain as noted on CT abdomen and positive Calero sign. 10/26/2024-Dr. Murry consulted, less likely choleystitis given inflammatory process secondary to diverticulitis. Diagnostics: US Gallbladder (10/25/2024): 23 mm stone in the gallbladder neck with 22 mm second gallstone. Gallbladder wall is thickened 0.7 cm with edema. Plan -Please follow up with Dr. Murry, general surgery, for possible cholelithiasis. Health Maintenance: Disp: Pt is currently admitted to floors for further management of acute diverticulitis, awaiting blood cultures. FEN: advancing diet-->regular DVT: compression Code: Full code - The patient's plan was discussed with attending Dr. Hanson and senior residents Dr. Karina Warren MD PGY1 Internal Medicine Senior Resident Attestation: I discussed with and supervised the finance accounting internship physician involved in the care of this patient. I personally saw and examined the patient and discussed the assessment and plan with the entire medicine team, including my attending. I agree with the assessment and plan as documented above. Patient seen and examined at bedside. Patient is AO x 3. Patient feels much better. Complains of mild lower abdominal pain. All questions and concerns were addressed at bedside. Will continue IV antibiotics to treat her diverticulitis. We will continue to advance her diet and see how well she tolerates. Anticipate discharge in 1 to 2 days as the patient improves clinically. - Patient's care was discussed with my attending physician. Seth Collins MD Internal Medicine PGY-3 Attending Provider Attestation/Addendum I attest that I was physically present for the evaluation, physical examination, lab and imaging review of the patient with the residents. I discussed the case with the residents and agree with the findings and plans of care as documented above. At bedside today, patient states she is feeling much better. Was able to ambulate around the room without help. Has been able to tolerate her diet well. Continues to have mild lower abdominal pain. General surgery on board. We will continue IV antibiotics and advance her diet as she tolerates. We will plan for discharge once patient is able to tolerate diet well. Caitlyn Hanson MD
--- NOTE | 2024-10-26 15:06 | ESPR_ITS ---
Documentation for date of: 10/26/24 Subjective Subjective Brief History: 64F presenting with abdominal pain, nausea and fever. Pt reports symptoms began three days ago with pain in the LLQ, associated with nausea but no vomiting with intermittent fever. Pt was prescribed PO abx by her PCP but given worsening symptoms sought care in ER. CT showed sigmoid diverticulitis with associated pneumoperitoneum; pt has remained hemodynamically normal with no fever, improved pain and normalized WBC Pt states she had a colonoscopy many years ago which was normal, and denies any dysuria, pneumaturia or fecaluria PMH: Denies PSHx: Ankle surgery Meds: None Allergies: Cipro Social hx: Nonsmoker Family hx: No known malignancies Narrative: Pain improved further today, no nausea, tolerating regular diet and had a BM, re maining afebrile with normal WBC. Due to RUQ tenderness yesterday pt underwent gallbladder US showing 2cm stones and concern for gallbladder edema; she denies any current or history of RUQ/epigastric pain Exam Vital Signs Temp Pulse Resp BP Pulse Ox O2 Del Method 98.3 F 59 L 18 98/53 L 95 Room Air 10/26/24 12:00 10/26/24 12:00 10/26/24 12:00 10/26/24 12:00 10/26/24 12:00 10/26/24 12:00 Constitutional Constitutional: no acute distress Routine Respiratory Exam Respiratory: Present no resp distress Routine Abdominal Exam Abdominal: Present soft and tenderness (mild LLQ tenderness); Absent distended, rebound or guarding Results Results: Laboratory Laboratory results: results reviewed Results: Imaging Imaging narrative: US report reviewed Assessment & Plan Plan 64F otherwise healthy presenting with acute sigmoid diverticulitis with radiographic findings of pneumoperitoneum, who is clinically very well with little to no pain, no tenderness, normalized WBC and remaining afebrile. I explained to pt in person and with her family on the phone that given her overall clinical picture I do not recommend emergent surgery, as she is not having signs of sepsis or peritonitis, and she is recovering well with IV abx. Regarding her US I explained that acute cholecystitis is highly unlikely given the absence of pain, and as she has never had signs of biliary colic she may not require cholecystectomy but we can discuss as an outpt. All pts were answered and pt is agreeable to this plan DC IVF Continue abx Follow up blood cultures
--- NOTE | 2024-10-26 15:40 | PC.SS ---
This is 64-year-old, , single female who presented to the ED due to suffering from abdominal pain. Patient appeared alert and oriented to self, place and situation. Patient resides at home with her life partner, Virgil and mother. Patient is independent with all ADLs, no DME use. Patient assigned her daughter, Naz Ching, as her medical decision maker. Patient's PCP is Dr. Villela. provided education on [facility]. Patient will discharge home, no transportation is needed. Discharge plan: home Next of kin: Naz PuckettBrian (phone: [phone])
[2024-10-27] VITALS: BP 122/63; PULSE 60; RESP 18; TEMP 36; O2SAT 98
[2024-10-27 04:00] VITALS: BP 109/60; PULSE 53; RESP 18; TEMP 36.4; O2SAT 93
[2024-10-27] MEDS: PIPER/TAZO 3.375 GM 3.375 GM/50 ML BAG IV ×2 (05:20→13:03)
[2024-10-27 05:48] LABS: Basophils % (Auto) 1 % (0-2.5); Eosinophils # (Auto) 0.2 Thou/mm3 (0.0-0.5); Eosinophils % (Auto) 5 % (0-10); Hematocrit 31.5 % (36.0-46.0); Hemoglobin 10.6 g/dL (12.0-16.0); Immature Granulocytes % (Auto) 0 % (0-0); Immature Granulocytes Auto 0.02 Thou/mm3 (0.00-0.00); Lymphocytes % (Auto) 38 % (10-50); Mean Corpuscular HGB Conc 33.7 g/dl (31.0-37.0); Mean Corpuscular Hemoglobin 31.4 pg (25.0-35.0); Mean Corpuscular Volume 93 fL (80-100); Monocytes # (Auto) 0.4 Thou/mm3 (0.0-0.8); Monocytes % (Auto) 8 % (0-12); Neutrophils # (Auto) 2.5 Thou/mm3 (1.8-7.7); Neutrophils % (Auto) 48 % (37-80); Nucleated Red Blood Cell % 0 /100 WBC (0); Platelet Count 191 Thou/mm3 (140-440); RDW Standard Deviation 44.9 fL (36.4-46.3); Red Blood Count 3.38 Miln/mm3 (4.00-5.20); White Blood Count 5.1 Thou/mm3 (3.6-11.0)
[2024-10-27 06:10] LABS: Alanine Aminotransferase 9 U/L (10-49); Albumin, Serum 3.5 gm/dL (3.4-4.8); Albumin/Globulin Ratio 1.6 (1.2-2.2); Alkaline Phosphatase 53 U/L (46-116); Anion Gap 6 (7-16); Aspartate Amino Transferase 15 U/L (0-34); BUN/Creatinine Ratio 9 Ratio (12-20); Bilirubin,Total 0.4 mg/dL (0.3-1.2); Blood Urea Nitrogen 7 mg/dL (9-23); Calcium 9.2 mg/dL (8.3-10.6); Calcium (Corrected) 9.6 mg/dL (8.5-10.1); Carbon Dioxide 28.8 mMol/L (20.0-31.0); Chloride 111 mMol/L (98-107); Creatinine (Component) 0.8 mg/dL (0.6-1.3); Estimated Creatinine Clearance 55.4 mL/min (>60); Globulin 2.2 gm/dL (2.3-3.5); Glucose 93 mg/dL (74-106); Osmolality,Calculated 288 (275-295); Phosphorous 3.5 mg/dL (2.4-5.1); Potassium 4.2 mMol/L (3.4-5.1); Sodium 146 mMol/L (136-145); Total Protein 5.7 gm/dL (5.7-8.2); eGFR > 60 See Note
[2024-10-27 08:00] VITALS: BP 112/59; PULSE 57; RESP 18; TEMP 36.2; O2SAT 95
[2024-10-27] MEDS: PANTOPRAZOLE 40 MG TABLET PO (08:40)
--- NOTE | 2024-10-27 08:43 | PD.RESPRO ---
Documentation for date of: 10/27/24 Subjective Subjective Interval history: Patient examined at bedside. No acute overnight events. Patient says that her abdominal pain has improved but still has some tenderness on palpation. She notes having some pain after eating so she generally eats small meals. Denies any vomiting, diarrhea or blood in stool. Exam Vital Signs Temp Pulse Resp BP Pulse Ox O2 Del Method 97.6 F 53 L 18 109/60 93 L Room Air 10/27/24 04:00 10/27/24 04:00 10/27/24 04:00 10/27/24 04:00 10/27/24 04:00 10/27/24 04:00 Narrative Exam General: Patient is alert and laying comfortably in bed CHEST: Symmetrical, atraumatic, and with equal expansion , Nontender on palpation no deformity and no crepitus. CARDIOVASCULAR: Heart regular rhythm no murmur or gallop rub or extra beats. LUNGS: Clear to auscultation bilaterally with symmetrical chest rise.? No laboring tachypnea or wheezing.? No intercostal subcostal retraction.? No rales and no rhonchi. ABDOMEN: Patient has tenderness to palpation more so in left lower quadrant. Some tenderness throughtout abdomen. Reactive bowel sounds. No ascites EXTREMITIES: Nontender.? No edema.? No cyanosis.? Patient is able to move all 4 extremities well, with full ROM and good CSM. SKIN: Warm and dry, no jaundice or rashes noted. Objective Labs 10/27/24 05:00 10/27/24 05:00 Labs: Laboratory Results - last 24 hr 10/27/24 05:00 WBC 5.1 RBC 3.38 L Hgb 10.6 L Hct 31.5 L MCV 93 MCH 31.4 MCHC 33.7 RDW Std Deviation 44.9 Plt Count 191 Neut % (Auto) 48 Lymph % (Auto) 38 [place] % (Auto) 8 Eos % (Auto) 5 Baso % (Auto) 1 Neut # (Auto) 2.5 Lymph # (Auto) 2.0 [place] # (Auto) 0.4 Eos # (Auto) 0.2 Baso # (Auto) 0.0 Immature Gran # (Auto) 0.02 H Absolute Nucleated RBC 0.00 Immature Gran % 0 Nucleated RBC % 0 Sodium 146 H Potassium 4.2 Chloride 111 H Carbon Dioxide 28.8 Anion Gap 6 L BUN 7 L Creatinine 0.8 Estim Creat Clear Calc 55.4 L eGFR > 60 BUN/Creatinine Ratio 9 L Glucose 93 Calculated Osmolality 288 Calcium 9.2 Corrected Calcium 9.6 Phosphorus 3.5 Magnesium 2.0 Total Bilirubin 0.4 AST 15 ALT 9 L Alkaline Phosphatase 53 Total Protein 5.7 Albumin 3.5 Globulin 2.2 L Albumin/Globulin Ratio 1.6 Quality Measures Quality Measures VTE prophylaxis Assessment & Plan Assessment Current Active Medications: Generic Name Dose Route Start Last Admin Trade Name Freq PRN Reason Stop Dose Admin Acetaminophen 650 mg 10/24/24 22:50 Acetaminophen 325 Mg Tablet PO 11/23/24 22:49 Q6H PRN Fever >101.5 Acetaminophen 650 mg 10/24/24 22:50 Acetaminophen 325 Mg Tablet PO 11/23/24 22:49 Q6H PRN PAIN SCALE 1-3 (mild Dextrose 25 ml 10/25/24 09:08 Dextrose 50%-Water Inj 50 Ml Syringe IV 11/24/24 09:07 Q15MIN PRN BG 50-70 responsive npo pt Dextrose 50 ml 10/25/24 09:08 Dextrose 50%-Water Inj 50 Ml Syringe IV 11/24/24 09:07 Q15MIN PRN BG <50 OR BG <70 & pt unresponsive Glucagon 1 mg 10/25/24 09:08 Glucagon Inj 1 Mg Vial IM Q15MIN PRN BG <70, and no IV access Piperacillin/Tazobactam/Dextrose 3.375 gm in 50 mls @ 12.5 mls/hr 10/25/24 06:00 10/27/24 05:20 Zosyn IV 11/01/24 05:59 12.5 mls/hr Q8HR CARMELO Administration Vancomycin HCl 250 mls @ 120 mls/hr 10/25/24 17:45 10/26/24 09:03 Vancomycin/Water 1250 Mg Ivpb IV 11/01/24 17:44 120 mls/hr DAILY@1000 CARMELO Administration Ketorolac Tromethamine 15 mg 10/25/24 12:40 Ketorolac Inj 30 Mg/Ml Vial IVP 10/30/24 12:39 Q6H PRN PAIN SCALE 4-6 (Moderate Morphine Sulfate 2 mg 10/24/24 22:50 10/24/24 23:54 Morphine Sulf Inj 10 Mg/Ml Vial IVP 10/29/24 22:49 2 mg Q3H PRN Administration PAIN SCALE 7-10 (Severe Ondansetron HCl 4 mg 10/24/24 22:50 10/24/24 23:55 Ondansetron Inj 2 Mg/Ml Inj 2 Ml IV 11/23/24 22:49 4 mg Q6H PRN Administration NAUSEA OR VOMITING Protocol Oxycodone/Acetaminophen 1 tab 10/24/24 22:50 Oxycodone/Apap 5/325 Tablet PO 10/29/24 22:49 Q6H PRN PAIN SCALE 4-6 (Moderate Protocol Pantoprazole Sodium 40 mg 10/25/24 09:00 10/27/24 08:40 Pantoprazole 40 Mg Tablet PO 11/24/24 08:59 40 mg BID CARMELO Administration Pharmacy Consult 1 each 10/25/24 17:45 Vancomycin Pharmacy To Dose 1 Each Each IV 11/24/24 17:44 QDAY PRN CONSULT Plan 64 year old female with no known past medical history who presented with worsening abdominal pain since 10/22/2024 with associated nausea found to have sigmoid diverticulitis so was admitted for further management. #Sigmoid diverticulitis #Localized sigmoid perforation #Right upper quadrant tenderness #Bacteremia CBC was positive for WBC of 13.8, hemoglobin of 12.1, platelet 187, biochemistry was nonsignificant lactic acid within normal limits, lipase of 30, Pro-Masood was normal. General surgeon Dr. Osuna was consulted she recommended to admit the patient for conservative management with IV fluids and IV antibiotics. On exam patient has right upper quadrant tenderness. Possible that this is related to her diverticulitis. 10/26/2023-patient continues to have diffuse tenderness but refusing pain management, blood cultures at 48 hours pending-->Likely D/C on 10/27/2024. 1/2 blood cultures [facility], continue vancomycin, re-access tomorrow after 48 hours. 1/2 bottles likely contaminated. 10/27/2023-Patient says that her abdominal pain has improved but still having tenderness on palpation. Patients blood culture return and was positive for Diagnostics: -CT scan of the abdomen and pelvis showed sigmoid diverticulitis with localized pneumoperitoneum, microperforations. -Blood Culture 1/2 GPC bottles at 24 hours Plan ? Admit patient to [facility] ? regular diet, tolerating well ? IV fluid 100 mL/h d/c 10/26/2023 ?Continue on Zosyn (10/24--) -Vancomycin 10/25/2023 -Waiting on more blood cultures ?Pain management as per protocol ?Tylenol as needed for fever -Per surgery recommendations, since patient hemodynamically stable at this time and no peritoneal signs noted there is no immediate indication for surgery at this time. -General Surgery Consulted appreciate recommendations. #Hypotension #Acute Blood Loss Patient has soft blood pressure thought out hospital course with slight decrease in Hgb from AM, thus acute blood loss can not be ruled out. Drop in hgb likely lab error given improved Hgb shortly after with repeat test. Continue to monitor. Plan -Type and Screen obtained -Consider Hgb and Hct at midnight -bolus 500 ml given 10/25/2024 -Monitor MAP>65 -Consider additional bolus and if blood pressure continues to be soft add Midodrine. #Bradycardia: Patient has had episodes of bradycardia with rates in the 50's. ECG done that showed normal sinus Plan: - ECG showed normal sinus rhythm #Hypoglycemia: Patients labs previously showed low glucose levels likely from being NPO. Patient started on regular diet and glucose back to normal. Plan: - Start D50 25 ml q15 as needed if blood sugar 50-70 - Regular diet # Normocytic anemia: # Iron deficiency anemia On patients labs, Iron of 29, TIBC 200, RDW of 46.4, and hemoglobin of 11.2. Given both Iron and TIBC is low in setting of increased RDW, suspect Iron deficiency anemia. Patients hemoglobin increased from 9.9 to 11.2 so possible that anemia is from delusional effect. Patient had Guaiac testing which was negative. Unlikely that anemia is from GI bleed. Plan: - Low iron stores - monitor BP and heart rate - no iron tablets at this time given diverticulitis, outpatient - Type and Screen in. #Cholelithiasis Incidental finding of cholelithiasis with right upper quadrant pain as noted on CT abdomen and positive Calero sign. 10/26/2024-Dr. Murry consulted, less likely choleystitis given inflammatory process secondary to diverticulitis. Diagnostics: US Gallbladder (10/25/2024): 23 mm stone in the gallbladder neck with 22 mm second gallstone. Gallbladder wall is thickened 0.7 cm with edema. Plan -Please follow up with Dr. Murry, general surgery, for possible cholelithiasis. Health Maintenance: Disp: Pt is currently admitted to floors for further management of acute diverticulitis, awaiting blood cultures. FEN: regular DVT: compression Code: Full code -- Patient was seen and discussed with attending physician, Dr. Hanson and resident physician, Dr. Parker, PGY1 and Dr. Archer, PGY 2 [employer] Medical student
[2024-10-27] MEDS: VANCOMYCIN/WATER 1250 MG IVPB 250 ML 120 MG IV (10:33)
--- NOTE | 2024-10-27 10:33 | EKG_ITS ---
[facility] Test Date: 2024-10-27 Pat Name: ALICIA PHILLIP [facility] Virtual Reality Specialist: LIBERTAD : 1960 Requested By: Jenni Parker Order Number: [id number] Reading MD: Jenni Parker Measurements Intervals [place] Rate: 72 P: 38 NC: 159 QRS: 69 QRSD: 88 T: 43 QT: 358 QTc: 394 Interpretive Statements SINUS RHYTHM No previous ECG available for comparison /store/S0/[id number]
[2024-10-27 12:00] VITALS: BP 115/65; PULSE 67; RESP 18; TEMP 36.2; O2SAT 95
--- NOTE | 2024-10-27 12:32 | PC.SS ---
Rounding: Pending rpt blood cults
[2024-10-27 13:30] VITALS: PULSE 76; RESP 18; RESP 98
--- NOTE | 2024-10-27 14:03 | ESDS_ITS ---
<Statement entered by Caitlyn Hanson MD - 10/28/24 17:31> I attest that I was physically present for the evaluation, physical examination, lab and imaging review of the patient with the residents. I discussed the case with the residents and agree with the findings and plans of care as documented above. At bedside today, patient states she is feeling well and does not have any new complaints. Has been able to tolerate diet and ambulate around the room. Denies any nausea, vomiting. States that her abdominal pain has improved and is only minimal, not needing any analgesics. Hemoglobin has been stable. Patient deemed stable for discharge on oral antibiotics. Advised to follow-up with PCP and general surgery. Caitlyn Hanson MD <Statement entered by Adair Archer MD - 10/27/24 15:50> I saw and examined the patient, and I agree with current management stated by Dr Kin DO,PGY1. Plan of care was discussed with the attending physician and resident physician. Disclaimer: Despite multiple revisions, due to the dictation software being used, the document bellow may not be free of grammatical errors including phonetic/typographic errors. However, this does not deter from our commitment to providing health care in the patient's best interest in mind. Dr. Gianni MD, PGY 2 Planned Discharge Date 10/27/24 DS: Providers Provider Date of admission: 10/24/24 22:50 Primary care physician: Arnold Villela MD Admitting Provider: Angel Clancy MD Attending Provider on Admission: Angel Clancy MD Consults: 10/24/24 21:19 Consult to General Surgery Stat Comment: Consulting Provider: Pari Murry Attending Provider on DC: Caitlyn Hanson MD Discharging Provider: Caitlyn Hanson MD DS: Diagnosis Problem List Completed Was Problem List Reviewed/Reconciled?: Yes Hospital Course Hospital Course Hospital course: This 64 year old woman with no significant past medical history who had presented with abdominal pain worse in left lower quadrant and nausea since 10/22/2024. On work up found to have BP of 117/70, temperature of 99, increase WBC's at 13.8and CT scan of abdomen revealed diverticulitis with microperforation and pneumoperitoneum so admitted for work up and further management. Surgery consulted and deemed that as patient is hemodynamically stable and there were no peritoneal signs that surgery not necessary at this time and proceed with medical management. Incidentally found to have cholelithiasis with gall stone of about 23 mm stone in the gallbladder neck with 22 mm second gallstone and no plans for surgical intervention at this time given patient is stable with no signs of biliary colic. Patient was managed with IV antibiotic therapy and fluid resuscitation. Pain management was adequately given. Blood cultures 1 out of 2 grew Staph hominis most likely contamination. Repeat blood cultures were ordered which will be followed up closely. Patient was medically stable to be discharged today. Patient is discharged to home. #Problem list: #Sigmoid diverticulitis, stable #Localized sigmoid perforation, stable #Right upper quadrant tenderness, stable #Hypotension, stable #Hypoglycemia, resolved #Bradycardia, resolved #Normocytic Anemia, stable #Cholelithiasis, stable Please take your new medications as directed: Amoxicillin/clavulanate 875-125 mg by mouth twice a day for 10 days Metronidazole 500 mg tablet by mouth 3 times a day for 10 days Pantoprazole 40 mg tablet by mouth 1 a day for 14 days. It is advised to consume greater than 30 g of fiber per day Please follow-up with your primary care provider within 7 days of discharge. If you do not have a primary care provider you are welcome to follow-up with [facility] at [address] [place] [address] , [address], [place] [address]. [phone] Please follow-up with colonoscopy in about 2 months, per Dr. Murry's recommendations verbally expressed to you Please return to the emergency department if symptoms persist or worsen Discharge Plan: Patient to be discharged home on Augmentin 875-125 mg BID for 10 days, Met ronidazole 500 mg TID for 10 days and pantoprazole 10 mg daily for 2 weeks. Advised to follow up with PCP within 1 week and follow up with surgeon in 2 weeks. -- Patient was seen and discussed with attending physician, and resident physician, Dr. Kin DO, PGY1 and Dr. Gianni MD, PGY 2 Harrison Newton, medical student Status at Discharge Cognitive/behavioral status at discharge: Patient is stable at time of discharge Functional status at discharge: independent ambulation Overall status at discharge: patient is back to baseline Time Spent with Patient Time attestation: Total time spent providing and/or coordinating discharge services: Time spent: Greater than 30 minutes Exam Vital Signs Temp Pulse Resp BP Pulse Ox O2 Del Method 97.1 F 76 18 115/65 95 Room Air 10/27/24 12:00 10/27/24 13:30 10/27/24 13:30 10/27/24 12:00 10/27/24 12:00 10/27/24 12:00 Narrative Exam General: Patient resting comfortably in bed CHEST: Symmetrical, atraumatic, and with equal expansion , Nontender on palpation no deformity and no crepitus. CARDIOVASCULAR: Heart regular rhythm no murmur or gallop rub or extra beats. LUNGS: Clear to auscultation bilaterally with symmetrical chest rise.? No l aboring tachypnea or wheezing.? No intercostal subcostal retraction.? No rales and no rhonchi. ABDOMEN: Some tenderness to palpation in all four quadrants of abdomen. Worse in left lower quadrant. No ascites EXTREMITIES: Nontender.? No edema.? No cyanosis.? Patient is able to move all 4 extremities well, with full ROM and good CSM. SKIN: Warm and dry, no jaundice or rashes noted. Discharge Plan Plan Patient Disposition: HOME (Self Care) Patient condition on transfer: Stable Prescriptions/Referrals Prescriptions/Med Rec: New amoxicillin-pot clavulanate 875-125 mg tablet 1 tab PO BID 10 Days Qty: 20 0RF metronidazole 500 mg tablet 500 mg PO TID 10 Days Qty: 30 0RF pantoprazole 40 mg tablet,delayed release (DR/EC) 40 mg PO QDAY Qty: 14 0RF Discontinued ibuprofen 600 mg tablet 600 mg PO Q6H PRN (Reason: pain) Qty: 30 0RF Referrals: Arnold Villela MD [Primary Care Provider] - Patient/Caregiver Discharge Instructions Other Discharge Activity Instructions:: Please take your new medications as directed: Amoxicillin/clavulanate 875-125 mg by mouth twice a day for 10 days Metronidazole 500 mg tablet by mouth 3 times a day for 10 days Pantoprazole 40 mg tablet by mouth 1 a day for 14 days. It is advised to consume greater than 30 g of fiber per day Please follow-up with your primary care provider within 7 days of discharge. If you do not have a primary care provider you are welcome to follow-up with [facility] at [address] [place] [address] , [address], [place] [address]. [phone] Please follow-up with colonoscopy in about 2 months, per Dr. Osuna's recommendations verbally expressed to you Please return to the emergency department if symptoms persist or worsen Print Language: Irish Stand Alone Forms: Susy Award Info., Patient Portal Info Letter Discharge Order Discharge Orders: Discharge (Routine); Ordered 10/27/24 Ordered By: Adair Archer Quality Discharge Quality Measures VTE prophylaxis
[2024-10-27 16:00] VITALS: BP 108/54; PULSE 70; RESP 18; TEMP 36.2; O2SAT 95
== END 2024-10-27 17:31 | disposition home or self-care (01) | DRG 392 ==
LOC: SERX 19:38 → SERHOLD 10-25 01:04 → S3SX 10-25 03:33
PROVIDERS: Nurse Practitioner Family; Physician Assistant; Student in an Organized Health Care Education/Training Program; Admitting Provider Student in an Organized Health Care Education/Training Program; Emergency Provider Emergency Medicine; PCP Family Medicine; Visit Provider Student in an Organized Health Care Education/Training Program
DX: K57.20 Diverticulitis of large intestine with perforation and abscess without bleeding (principal); I95.9 Hypotension, unspecified; R00.1 Bradycardia, unspecified; D50.9 Iron deficiency anemia, unspecified; K80.20 Calculus of gallbladder without cholecystitis without obstruction; E16.2 Hypoglycemia, unspecified
CPT/HCPCS: 36415; 74176; 76705; 80053; 81001; 83540; 83550; 83605; 83690; 83735; 84100; 84145; 84443; 85014; 85018; 85025; 85610; 85730; 86850; 86900; 86901; 87040; 87077; 87081; 87086; 87186; 93005; 96365; 96372; 96375; 99285; J1885; J2270; J2405; J2543; J3372; J7030; J7040; J7050; J7120; A9270

== ENCOUNTER → 2025-03-17 | Outpatient (CLI) | payer BC, SELFPAY ==
--- NOTE | 2025-03-17 09:45 | XR_ITS ---
Examination: Screening digital mammography, bilateral Computer aided detection 3-D breast Tomosynthesis, bilateral Date and time of exam: March 17, 2025 1003 hours Compared to mammograms dating to August 09, 2015 Indication: Screening Technique: Nonmagnified MLO, CC views of the breasts to been obtained, reconstructed from 3-D Tomosynthesis images. R2 computer aided detection program utilized for evaluation of suspicious masses and/or abnormal calcifications. 3-D Tomosynthesis images obtained. Findings: Scattered areas of fibroglandular density. No interval suspicious masses Benign calcifications Impression: BI-RADS category II: Benign Findings. Recommend 1 year follow-up mammogram.
== END | disposition home or self-care (01) ==
LOC: CDIM 09:47
PROVIDERS: Referring Provider Family Medicine; Visit Provider Family Medicine
DX: Z12.31 Encounter for screening mammogram for malignant neoplasm of breast (principal); R92.323 Mammographic fibroglandular density, bilateral breasts; R92.1 Mammographic calcification found on diagnostic imaging of breast
CPT/HCPCS: 77063; 77067

== ENCOUNTER → 2025-06-15 | Outpatient (CLI) | payer BC, SELFPAY ==
--- NOTE | 2025-06-15 15:40 | EKG_ITS ---
[facility] Test Date: 2025-06-15 Pat Name: ALICIA PHILLIP Department: Room: - Gender: Female Database Management System Specialist: JAX : [id number] Requested By: Stephan Alejo Order Number: [id number] Reading MD: Stephan Alejo Measurements Intervals [place] Rate: 61 P: 41 DE: 150 QRS: 61 QRSD: 86 T: 41 QT: 384 QTc: 387 Interpretive Statements SINUS RHYTHM Compared to ECG 10/27/2024 11:23:19 No significant changes /store/S0/[id number].pdf
== END | disposition home or self-care (01) ==
LOC: SEKG 15:31
PROVIDERS: PCP Family Medicine; Referring Provider Specialist; Visit Provider Specialist
DX: Z01.810 Encounter for preprocedural cardiovascular examination (principal)
CPT/HCPCS: 93005

== ENCOUNTER → 2025-10-08 | Outpatient (CLI) | payer BC, SELFPAY ==
--- NOTE | 2025-10-08 09:41 | XR_ITS ---
EXAMINATION: PA chest lateral 2 views TECHNIQUE: Upright PA lateral chest 2 views Date and time: October 08, 2025, 0945 hours INDICATIONS: Coughing sore throat beginning last week FINDINGS: Normal heart size Lungs are clear. Intact osseous structures with moderate thoracic dextroscoliosis Old fracture right clavicle IMPRESSION: No active disease
== END | disposition home or self-care (01) ==
LOC: SDIM 09:21
PROVIDERS: PCP Family Medicine; Referring Provider Family Medicine; Visit Provider Family Medicine
DX: R05.1 Acute cough (principal)
CPT/HCPCS: 71046